=== PATIENT | male | born 1935 | race African-American/Black ===

== ENCOUNTER 2018-11-27 07:08 | Observation (INO) ==
[2018-11-27 08:43] LABS: Basophils % 0.8 % (0.0-0.8); Eosinophils # 0.5 10*3/uL (0.0-0.87); Eosinophils % 10.9 % (0.00-10.9); Hematocrit 36.3 VOL% (42.0-52.0); Immature Granulocytes % 0.4 %; Immature Granulocytes Absolute 0.02 #; Lymphocytes # 1.4 10*3/uL (1.4-4.0); Lymphocytes % 28.9 % (21.2-54.2); Mean Corpuscular HGB Conc 33.1 GM/DL (32-36); Mean Corpuscular Volume 102.5 FL (87-102); Mean Platelet Volume 11.6 FL (9.6-12.0); Monocytes % 10.9 % (1.7-12.7); Neutrophils % 48.1 % (38.7-73.9); Platelet Count 159 T/CUMM (130-400); Red Blood Count 3.54 MC/CUMM (3.8-5.5); Red Cell Distribution Width 12.6 % (9.3-17.3); White Blood Count 4.8 T/CUMM (4-12)
[2018-11-27 09:02] LABS: Albumin 3.4 G/DL (3.4-5.0); Bilirubin,Total 0.8 MG/DL (0.2-1.0); Calcium 9.2 MG/DL (8.5-10.1); Total Protein 7.7 G/DL (6.4-8.3)
[2018-11-27] MEDS ORDERED: FUROSEMIDE 40 MG/4 ML VIAL IV STA (09:38)
[2018-11-27 09:43] LABS: Amorphous Crystals,Urine Occasional /HPF (Few); Apearance,Urine CLEAR (Clear); Bilirubin,Urine Negative (Negative); Blood, Urine Negative (Negative); Glucose,Urine (UA) Negative (Negative); Ketones,Urine 5 mg/dL (Negative); Mucus,Urine Occasional /LPF (Occasional); Nitrite,Urine Negative (Negative); Protein,Urine 100 MG/DL; RBC,Urine 1 /HPF (0-4); Squamous Epithelial Cell,Urine Occasional /HPF (0-10); Urine Color Yellow (Yellow); Urine Specific Gravity 1.015 (1.001-1.035); Urine Urobilinogen < 2.0 EU/DL (0.2-1.0)
[2018-11-27] MEDS ORDERED: ACETAMINOPHEN 325 MG TABLET PO PRN (10:53)
[2018-11-27] MEDS ORDERED: SODIUM CHLORIDE 0.9% 1,000 ML IV SCH (10:53)
[2018-11-27] MEDS ORDERED: ONDANSETRON 4 MG/2 ML VIAL IV PRN (10:53)
[2018-11-27] MEDS: METOPROLOL SUCCINATE XL 25 MG TABLET PO SCH (14:34)
[2018-11-27] MEDS ORDERED: ALBUTEROL 2.5 MG/3 ML NEB RESP TX PRN (15:00)
[2018-11-27] MEDS: FUROSEMIDE 40 MG/4 ML VIAL IV SCH (16:19)
[2018-11-27] MEDS ORDERED: ALBUTEROL/IPRATROPIUM 3 ML NEB RESP TX PRN (19:49)
[2018-11-27] MEDS: SACUBITRIL/VALSARTAN 49-51 MG TABLET PO SCH (21:02)
[2018-11-27] MEDS: DOCUSATE SODIUM 100 MG CAPSULE PO SCH (21:02)
[2018-11-27] MEDS: LATANOPROST 0.005% OPH SOLN 2.5 ML BOTTLE BOTH EYES SCH (21:02)
[2018-11-28 05:38] LABS: Basophils % 0.7 % (0.0-0.8); Eosinophils # 0.5 10*3/uL (0.0-0.87); Hematocrit 38.4 VOL% (42.0-52.0); Hemoglobin 12.3 GM/DL (14.0-18.0); Immature Granulocytes % 0.2 %; Immature Granulocytes Absolute 0.01 #; Lymphocytes # 1.4 10*3/uL (1.4-4.0); Lymphocytes % 32.5 % (21.2-54.2); Mean Corpuscular Volume 103.8 FL (87-102); Mean Platelet Volume 11.9 FL (9.6-12.0); Monocytes % 12.7 % (1.7-12.7); Neutrophils % 41.9 % (38.7-73.9); Platelet Count 164 T/CUMM (130-400); Red Cell Distribution Width 12.4 % (9.3-17.3); White Blood Count 4.2 T/CUMM (4-12)
[2018-11-28 06:08] LABS: Bilirubin,Total 0.7 MG/DL (0.2-1.0); Calcium 8.5 MG/DL (8.5-10.1); Risk Ratio 2.24; Thyroid Stimulating Hormone 3.41 uIU/ml (0.358-3.74); VLDL CHOLESTEROL 15.2 MG/DL
[2018-11-28 06:29] LABS: Band Neutrophils 3 % (0-10); Eosinophils 11 % (0-10); Hypochromasia 2+; Lymphocytes 30 % (20-55); Platelet Estimate Normal; Segmented Neutrophils 42 % (50-85); Total Cells Counted 100
[2018-11-28] MEDS: SODIUM CHLOR 0.9% KCL 20 MEQ 20 MEQ/1,000 ML BAG IV SCH (08:41)
[2018-11-28] MEDS: FUROSEMIDE 40 MG/4 ML VIAL IV SCH ×2 (08:42→15:56)
[2018-11-28] MEDS: ROSUVASTATIN 20 MG TABLET PO SCH (08:43)
[2018-11-28] MEDS: DUTASTERIDE 0.5 MG CAPSULE PO SCH (08:43)
[2018-11-28] MEDS: ASPIRIN EC 81 MG TABLET PO SCH (08:43)
[2018-11-28] MEDS: PANTOPRAZOLE 40 MG TABLET PO SCH (08:43)
[2018-11-28] MEDS: DOCUSATE SODIUM 100 MG CAPSULE PO SCH ×2 (08:43→20:23)
[2018-11-28] MEDS: MULTIVITAMIN (CENTRUM) TABLET PO SCH (08:43)
[2018-11-28] MEDS: SACUBITRIL/VALSARTAN 49-51 MG TABLET PO SCH ×2 (08:44→20:23)
[2018-11-28] MEDS: METOPROLOL SUCCINATE XL 25 MG TABLET PO SCH (08:44)
[2018-11-28] MEDS: TAMSULOSIN 0.4 MG CAPSULE PO SCH (08:45)
[2018-11-28] MEDS: LATANOPROST 0.005% OPH SOLN 2.5 ML BOTTLE BOTH EYES SCH ×2 (08:49→20:23)
[2018-11-28] MEDS: POTASSIUM CHLORIDE RIDER 10 MEQ in PREMIX 1 EACH IV SCH ×3 (09:40→13:31)
[2018-11-29 05:02] LABS: Basophils % 0.9 % (0.0-0.8); Eosinophils # 0.5 10*3/uL (0.0-0.87); Eosinophils % 11.2 % (0.00-10.9); Hematocrit 36.9 VOL% (42.0-52.0); Hemoglobin 11.9 GM/DL (14.0-18.0); Immature Granulocytes % 0.4 %; Immature Granulocytes Absolute 0.02 #; Lymphocytes # 1.3 10*3/uL (1.4-4.0); Lymphocytes % 28.5 % (21.2-54.2); Mean Corpuscular HGB Conc 32.2 GM/DL (32-36); Mean Corpuscular Volume 103.4 FL (87-102); Mean Platelet Volume 11.1 FL (9.6-12.0); Monocytes % 12.1 % (1.7-12.7); Neutrophils % 46.9 % (38.7-73.9); Platelet Count 150 T/CUMM (130-400); Red Blood Count 3.57 MC/CUMM (3.8-5.5); Red Cell Distribution Width 12.3 % (9.3-17.3); White Blood Count 4.6 T/CUMM (4-12)
[2018-11-29 05:29] LABS: Band Neutrophils 18 % (0-10); Eosinophils 11 % (0-10); Lymphocytes 25 % (20-55); Segmented Neutrophils 30 % (50-85); Total Cells Counted 100
[2018-11-29 05:30] LABS: Platelet Estimate Adequate
[2018-11-29 05:34] LABS: Bilirubin,Total 0.9 MG/DL (0.2-1.0); Calcium 8.7 MG/DL (8.5-10.1); Osmolality,Calculated 292.7 MOS/KG (273-304); Total Protein 6.9 G/DL (6.4-8.3)
[2018-11-29] MEDS: DUTASTERIDE 0.5 MG CAPSULE PO SCH (08:04)
[2018-11-29] MEDS: FUROSEMIDE 40 MG/4 ML VIAL IV SCH (08:04)
[2018-11-29] MEDS: METOPROLOL SUCCINATE XL 25 MG TABLET PO SCH (08:04)
[2018-11-29] MEDS: DOCUSATE SODIUM 100 MG CAPSULE PO SCH ×2 (08:04→21:19)
[2018-11-29] MEDS: ASPIRIN EC 81 MG TABLET PO SCH (08:04)
[2018-11-29] MEDS: LATANOPROST 0.005% OPH SOLN 2.5 ML BOTTLE BOTH EYES SCH ×2 (08:04→21:19)
[2018-11-29] MEDS: MULTIVITAMIN (CENTRUM) TABLET PO SCH (08:04)
[2018-11-29] MEDS: TAMSULOSIN 0.4 MG CAPSULE PO SCH (08:04)
[2018-11-29] MEDS: PANTOPRAZOLE 40 MG TABLET PO SCH (08:04)
[2018-11-29] MEDS: ROSUVASTATIN 20 MG TABLET PO SCH (08:04)
[2018-11-29] MEDS: SACUBITRIL/VALSARTAN 49-51 MG TABLET PO SCH ×2 (08:05→21:18)
[2018-11-29] MEDS: FUROSEMIDE 40 MG TABLET PO SCH (15:37)
[2018-11-29] MEDS: SODIUM CHLOR 0.9% KCL 20 MEQ 20 MEQ/1,000 ML BAG IV SCH (23:40)
[2018-11-30 05:11] LABS: Basophils % 0.7 % (0.0-0.8); Eosinophils # 0.6 10*3/uL (0.0-0.87); Hematocrit 35.3 VOL% (42.0-52.0); Hemoglobin 11.4 GM/DL (14.0-18.0); Immature Granulocytes % 0.2 %; Immature Granulocytes Absolute 0.01 #; Lymphocytes # 1.4 10*3/uL (1.4-4.0); Lymphocytes % 29.6 % (21.2-54.2); Mean Corpuscular HGB Conc 32.3 GM/DL (32-36); Mean Corpuscular Volume 103.8 FL (87-102); Mean Platelet Volume 11.8 FL (9.6-12.0); Monocytes % 12.4 % (1.7-12.7); Neutrophils % 44.1 % (38.7-73.9); Platelet Count 151 T/CUMM (130-400); Red Cell Distribution Width 12.6 % (9.3-17.3); White Blood Count 4.6 T/CUMM (4-12)
[2018-11-30 05:32] LABS: Eosinophils 14 % (0-10); Hypochromasia 1+; Lymphocytes 23 % (20-55); Platelet Estimate Adequate; Segmented Neutrophils 51 % (50-85); Total Cells Counted 100
[2018-11-30 05:48] LABS: Calcium 8.6 MG/DL (8.5-10.1); Osmolality,Calculated 294.6 MOS/KG (273-304)
[2018-11-30 07:45] VITALS: BP 141/84
[2018-11-30] MEDS: FUROSEMIDE 40 MG TABLET PO SCH (07:47)
[2018-11-30] MEDS: LATANOPROST 0.005% OPH SOLN 2.5 ML BOTTLE BOTH EYES SCH (09:00)
[2018-11-30] MEDS: DOCUSATE SODIUM 100 MG CAPSULE PO SCH (09:03)
[2018-11-30] MEDS: TAMSULOSIN 0.4 MG CAPSULE PO SCH (09:03)
[2018-11-30] MEDS: MULTIVITAMIN (CENTRUM) TABLET PO SCH (09:05)
[2018-11-30] MEDS: METOPROLOL SUCCINATE XL 25 MG TABLET PO SCH (09:05)
[2018-11-30] MEDS: DUTASTERIDE 0.5 MG CAPSULE PO SCH (09:05)
[2018-11-30] MEDS: ROSUVASTATIN 20 MG TABLET PO SCH (09:05)
[2018-11-30] MEDS: ASPIRIN EC 81 MG TABLET PO SCH (09:05)
[2018-11-30] MEDS: SACUBITRIL/VALSARTAN 49-51 MG TABLET PO SCH (09:05)
[2018-11-30] MEDS: PANTOPRAZOLE 40 MG TABLET PO SCH (09:06)
[2018-11-30] MEDS ORDERED: POTASSIUM CHLORIDE 10 MEQ TABLET PO SCH (10:30)
== END 2018-11-30 11:27 | disposition home or self-care (01) ==
LOC: N.2E 07:08 → N.ED 07:08 → N.2E 10:48
PROVIDERS: ADMIT Family Medicine; ATTEND Family Medicine

== ENCOUNTER 2018-12-07 05:50 | Inpatient (IN) ==
[2018-12-07] MEDS ORDERED: ALBUTEROL/IPRATROPIUM 3 ML NEB RESP TX STA (06:14)
[2018-12-07 06:40] LABS: Basophils % 0.7 % (0.0-0.8); Eosinophils # 0.4 10*3/uL (0.0-0.87); Eosinophils % 7.3 % (0.00-10.9); Hematocrit 39.1 VOL% (42.0-52.0); Hemoglobin 12.7 GM/DL (14.0-18.0); Immature Granulocytes % 0.4 %; Immature Granulocytes Absolute 0.02 #; Lymphocytes # 1.4 10*3/uL (1.4-4.0); Lymphocytes % 25.7 % (21.2-54.2); Mean Corpuscular HGB Conc 32.5 GM/DL (32-36); Mean Corpuscular Volume 102.9 FL (87-102); Mean Platelet Volume 11.2 FL (9.6-12.0); Monocytes % 10.2 % (1.7-12.7); Neutrophils % 55.7 % (38.7-73.9); Platelet Count 164 T/CUMM (130-400); Red Cell Distribution Width 12.4 % (9.3-17.3); White Blood Count 5.5 T/CUMM (4-12)
[2018-12-07 07:01] LABS: Albumin 3.4 G/DL (3.4-5.0); Calcium 9.2 MG/DL (8.5-10.1); Total Protein 7.7 G/DL (6.4-8.3)
[2018-12-07 07:03] LABS: Troponin I 0.038 NG/ML (0.00-0.045)
[2018-12-07] MEDS ORDERED: ENOXAPARIN 100 MG/ML SYRINGE SUBCUT STA (08:52)
[2018-12-07] MEDS ORDERED: ONDANSETRON 4 MG/2 ML VIAL IV PRN (10:23)
[2018-12-07] MEDS ORDERED: ACETAMINOPHEN 325 MG TABLET PO PRN (10:23)
[2018-12-07] MEDS ORDERED: DUTASTERIDE TAMSULOSIN PO SCH (13:00)
[2018-12-07] MEDS ORDERED: ALBUTEROL/IPRATROPIUM 3 ML NEB RESP TX PRN (13:08)
[2018-12-07] MEDS ORDERED: SACUBITRIL/VALSARTAN 49-51 MG TABLET PO SCH (13:30)
[2018-12-07] MEDS ORDERED: hydrALAZINE 20 MG/1 ML VIAL IV PRN (14:32)
[2018-12-07] MEDS: TIMOLOL 0.5% OPH SOLN 5 ML BOTTLE BOTH EYES SCH (14:41)
[2018-12-07] MEDS: POTASSIUM CHLORIDE RIDER 10 MEQ in PREMIX 1 EACH IV SCH ×2 (14:41→16:16)
[2018-12-07] MEDS: ASPIRIN EC 81 MG TABLET PO SCH (14:44)
[2018-12-07] MEDS: ISOSORBIDE MONONITRATE 30 MG TABLET PO SCH (16:15)
[2018-12-07] MEDS: FUROSEMIDE 40 MG TABLET PO SCH (16:15)
[2018-12-07 17:10] LABS: Apearance,Urine Slightly Hazy (Clear); Bacteria,Urine Occasional /HPF (Few); Bilirubin,Urine Negative (Negative); Blood, Urine Negative (Negative); Glucose,Urine (UA) Negative (Negative); Ketones,Urine 5 mg/dL (Negative); Mucus,Urine Occasional /LPF (Occasional); Nitrite,Urine Negative (Negative); Protein,Urine 30 MG/DL; Squamous Epithelial Cell,Urine Occasional /HPF (0-10); Urine Color Yellow (Yellow); Urine Specific Gravity 1.015 (1.001-1.035); Urine Urobilinogen < 2.0 EU/DL (0.2-1.0)
[2018-12-07] MEDS: DOCUSATE SODIUM 100 MG CAPSULE PO SCH (20:43)
[2018-12-07] MEDS: ENOXAPARIN 80 MG/0.8 ML SYRINGE SUBCUT SCH (20:44)
[2018-12-07] MEDS: LATANOPROST 0.005% OPH SOLN 2.5 ML BOTTLE BOTH EYES SCH (20:46)
[2018-12-08 03:46] LABS: Basophils # 0.1 10*3/uL (0.0-0.2); Basophils % 0.9 % (0.0-0.8); Eosinophils # 0.6 10*3/uL (0.0-0.87); Eosinophils % 10.3 % (0.00-10.9); Hematocrit 34.6 VOL% (42.0-52.0); Hemoglobin 11.4 GM/DL (14.0-18.0); Immature Granulocytes % 0.2 %; Immature Granulocytes Absolute 0.01 #; Lymphocytes # 1.9 10*3/uL (1.4-4.0); Lymphocytes % 33.4 % (21.2-54.2); Mean Corpuscular HGB Conc 32.9 GM/DL (32-36); Mean Corpuscular Volume 102.1 FL (87-102); Mean Platelet Volume 11.6 FL (9.6-12.0); Monocytes % 14.6 % (1.7-12.7); Neutrophils % 40.6 % (38.7-73.9); Platelet Count 166 T/CUMM (130-400); Red Blood Count 3.39 MC/CUMM (3.8-5.5); Red Cell Distribution Width 12.3 % (9.3-17.3); White Blood Count 5.5 T/CUMM (4-12)
[2018-12-08 04:18] LABS: Risk Ratio 2.45; VLDL CHOLESTEROL 14.6 MG/DL
[2018-12-08] MEDS ORDERED: NON-FORMULARY MEDICATION (Esomeprazole Magnesium 40 MG) PO SCH (09:00)
[2018-12-08] MEDS ORDERED: ENOXAPARIN 80 MG/0.8 ML SYRINGE SUBCUT SCH (09:00)
[2018-12-08 10:37] LABS: Calcium 8.8 MG/DL (8.5-10.1)
[2018-12-08] MEDS: ENOXAPARIN 80 MG/0.8 ML SYRINGE SUBCUT SCH ×2 (10:56→20:47)
[2018-12-08] MEDS: TIMOLOL 0.5% OPH SOLN 5 ML BOTTLE BOTH EYES SCH (10:57)
[2018-12-08] MEDS: LATANOPROST 0.005% OPH SOLN 2.5 ML BOTTLE BOTH EYES SCH ×2 (10:57→20:47)
[2018-12-08] MEDS: ROSUVASTATIN 20 MG TABLET PO SCH (11:00)
[2018-12-08] MEDS: DUTASTERIDE TAMSULOSIN PO SCH (11:00)
[2018-12-08] MEDS: FUROSEMIDE 40 MG TABLET PO SCH ×2 (11:00→16:18)
[2018-12-08] MEDS: DOCUSATE SODIUM 100 MG CAPSULE PO SCH ×2 (11:01→20:46)
[2018-12-08] MEDS: ASPIRIN EC 81 MG TABLET PO SCH (11:01)
[2018-12-08] MEDS: MULTIVITAMIN (CENTRUM) TABLET PO SCH (11:01)
[2018-12-08] MEDS: PANTOPRAZOLE 40 MG TABLET PO SCH (11:01)
[2018-12-08] MEDS: ISOSORBIDE MONONITRATE 30 MG TABLET PO SCH (11:01)
[2018-12-08] MEDS: METOPROLOL SUCCINATE XL 25 MG TABLET PO SCH (11:02)
[2018-12-08] MEDS ORDERED: ALBUTEROL 2.5 MG/3 ML NEB RESP TX PRN (12:30)
[2018-12-09 05:21] LABS: Basophils % 0.8 % (0.0-0.8); Eosinophils # 0.4 10*3/uL (0.0-0.87); Eosinophils % 7.9 % (0.00-10.9); Hematocrit 35.2 VOL% (42.0-52.0); Hemoglobin 11.4 GM/DL (14.0-18.0); Immature Granulocytes % 0.4 %; Immature Granulocytes Absolute 0.02 #; Lymphocytes # 1.3 10*3/uL (1.4-4.0); Lymphocytes % 25.3 % (21.2-54.2); Mean Corpuscular HGB Conc 32.4 GM/DL (32-36); Mean Corpuscular Volume 102.6 FL (87-102); Mean Platelet Volume 11.6 FL (9.6-12.0); Monocytes % 14.4 % (1.7-12.7); Neutrophils % 51.2 % (38.7-73.9); Platelet Count 157 T/CUMM (130-400); Red Blood Count 3.43 MC/CUMM (3.8-5.5); Red Cell Distribution Width 12.3 % (9.3-17.3); White Blood Count 5.3 T/CUMM (4-12)
[2018-12-09 05:35] LABS: Calcium 8.9 MG/DL (8.5-10.1); Osmolality,Calculated 290.8 MOS/KG (273-304)
[2018-12-09] MEDS: METOPROLOL SUCCINATE XL 25 MG TABLET PO SCH (09:24)
[2018-12-09] MEDS: ISOSORBIDE MONONITRATE 30 MG TABLET PO SCH (09:24)
[2018-12-09] MEDS: MULTIVITAMIN (CENTRUM) TABLET PO SCH (09:24)
[2018-12-09] MEDS: ASPIRIN EC 81 MG TABLET PO SCH (09:24)
[2018-12-09] MEDS: FUROSEMIDE 40 MG TABLET PO SCH ×2 (09:24→15:31)
[2018-12-09] MEDS: ROSUVASTATIN 20 MG TABLET PO SCH (09:24)
[2018-12-09] MEDS: PANTOPRAZOLE 40 MG TABLET PO SCH (09:25)
[2018-12-09] MEDS: ENOXAPARIN 80 MG/0.8 ML SYRINGE SUBCUT SCH ×2 (09:25→20:50)
[2018-12-09] MEDS: DOCUSATE SODIUM 100 MG CAPSULE PO SCH ×2 (09:25→20:51)
[2018-12-09] MEDS: DUTASTERIDE TAMSULOSIN PO SCH (09:26)
[2018-12-09] MEDS: TIMOLOL 0.5% OPH SOLN 5 ML BOTTLE BOTH EYES SCH (09:26)
[2018-12-09] MEDS: LATANOPROST 0.005% OPH SOLN 2.5 ML BOTTLE BOTH EYES SCH ×2 (09:31→20:50)
[2018-12-09] MEDS: POTASSIUM CHLORIDE 20 MEQ TABLET PO PRN ×4 (13:09→20:50)
[2018-12-09] MEDS: BUDESONIDE/FORMOTEROL 160-4.5 INHALER 6 GM INH SCH (20:50)
[2018-12-10] MEDS ORDERED: APIXABAN 5 MG TABLET PO SCH (09:00)
[2018-12-10] MEDS: METOPROLOL SUCCINATE XL 25 MG TABLET PO SCH (09:13)
[2018-12-10] MEDS: ASPIRIN EC 81 MG TABLET PO SCH (09:13)
[2018-12-10] MEDS: DOCUSATE SODIUM 100 MG CAPSULE PO SCH ×2 (09:13→21:41)
[2018-12-10] MEDS: APIXABAN 5 MG TABLET PO SCH ×2 (09:13→21:42)
[2018-12-10] MEDS: MULTIVITAMIN (CENTRUM) TABLET PO SCH (09:13)
[2018-12-10] MEDS: ROSUVASTATIN 20 MG TABLET PO SCH (09:13)
[2018-12-10] MEDS: FUROSEMIDE 40 MG TABLET PO SCH ×2 (09:13→16:29)
[2018-12-10] MEDS: ISOSORBIDE MONONITRATE 30 MG TABLET PO SCH (09:13)
[2018-12-10] MEDS: DUTASTERIDE TAMSULOSIN PO SCH (09:14)
[2018-12-10] MEDS: PANTOPRAZOLE 40 MG TABLET PO SCH (09:16)
[2018-12-10] MEDS: BUDESONIDE/FORMOTEROL 160-4.5 INHALER 6 GM INH SCH ×2 (09:18→21:42)
[2018-12-10] MEDS: LATANOPROST 0.005% OPH SOLN 2.5 ML BOTTLE BOTH EYES SCH (09:19)
[2018-12-10] MEDS: TIMOLOL 0.5% OPH SOLN 5 ML BOTTLE BOTH EYES SCH (09:20)
[2018-12-10 11:31] LABS: Calcium 9.6 MG/DL (8.5-10.1); Osmolality,Calculated 291.8 MOS/KG (273-304)
[2018-12-10] MEDS ORDERED: LATANOPROST 0.005% OPH SOLN 2.5 ML BOTTLE BOTH EYES SCH ×2 (21:00)
[2018-12-11 06:00] LABS: Basophils % 0.7 % (0.0-0.8); Eosinophils # 0.5 10*3/uL (0.0-0.87); Eosinophils % 10.1 % (0.00-10.9); Hematocrit 35.7 VOL% (42.0-52.0); Hemoglobin 11.8 GM/DL (14.0-18.0); Immature Granulocytes % 0.4 %; Immature Granulocytes Absolute 0.02 #; Lymphocytes # 1.3 10*3/uL (1.4-4.0); Lymphocytes % 24.5 % (21.2-54.2); Mean Corpuscular HGB Conc 33.1 GM/DL (32-36); Mean Corpuscular Volume 102.9 FL (87-102); Mean Platelet Volume 11.8 FL (9.6-12.0); Monocytes % 13.5 % (1.7-12.7); Neutrophils % 50.8 % (38.7-73.9); Platelet Count 169 T/CUMM (130-400); Red Blood Count 3.47 MC/CUMM (3.8-5.5); Red Cell Distribution Width 12.3 % (9.3-17.3); White Blood Count 5.4 T/CUMM (4-12)
[2018-12-11 06:32] LABS: Bilirubin,Total 1.3 MG/DL (0.2-1.0); Calcium 8.9 MG/DL (8.5-10.1); Osmolality,Calculated 292.8 MOS/KG (273-304); Total Protein 7.3 G/DL (6.4-8.3)
[2018-12-11] MEDS: ASPIRIN EC 81 MG TABLET PO SCH (08:07)
[2018-12-11] MEDS: APIXABAN 5 MG TABLET PO SCH (08:07)
[2018-12-11] MEDS: ROSUVASTATIN 20 MG TABLET PO SCH (08:07)
[2018-12-11] MEDS: MULTIVITAMIN (CENTRUM) TABLET PO SCH (08:07)
[2018-12-11] MEDS: METOPROLOL SUCCINATE XL 25 MG TABLET PO SCH (08:08)
[2018-12-11] MEDS: PANTOPRAZOLE 40 MG TABLET PO SCH (08:08)
[2018-12-11] MEDS: FUROSEMIDE 40 MG TABLET PO SCH (08:08)
[2018-12-11 08:09] VITALS: BP 132/88
[2018-12-11] MEDS: POTASSIUM CHLORIDE 20 MEQ TABLET PO PRN (08:09)
[2018-12-11] MEDS: ISOSORBIDE MONONITRATE 30 MG TABLET PO SCH (08:09)
[2018-12-11] MEDS: DUTASTERIDE TAMSULOSIN PO SCH (08:11)
[2018-12-11] MEDS: TIMOLOL 0.5% OPH SOLN 5 ML BOTTLE BOTH EYES SCH (08:11)
[2018-12-11] MEDS: BUDESONIDE/FORMOTEROL 160-4.5 INHALER 6 GM INH SCH (08:11)
[2018-12-11] MEDS ORDERED: POTASSIUM CHLORIDE 10 MEQ TABLET PO SCH (09:00)
[2018-12-11] MEDS: DOCUSATE SODIUM 100 MG CAPSULE PO SCH (11:13)
[2018-12-17] MEDS ORDERED: APIXABAN 5 MG TABLET PO SCH (09:00)
== END 2018-12-11 10:44 | disposition home health service (06) | DRG 176 ==
LOC: N.ED 05:50 → N.EDINP 09:16 → N.CC 10:17 → N.TELEN 12-08 12:45
PROVIDERS: ADMIT Family Medicine; ATTEND Family Medicine

== ENCOUNTER 2019-02-09 03:04 | Observation (INO) ==
[2019-02-09 03:32] LABS: Basophils # 0.1 10*3/uL (0.0-0.2); Eosinophils # 0.2 10*3/uL (0.0-0.87); Eosinophils % 3.3 % (0.00-10.9); Hematocrit 40.5 VOL% (42.0-52.0); Immature Granulocytes % 0.3 %; Immature Granulocytes Absolute 0.02 #; Lymphocytes # 1.4 10*3/uL (1.4-4.0); Lymphocytes % 23.3 % (21.2-54.2); Mean Corpuscular HGB Conc 32.1 GM/DL (32-36); Mean Corpuscular Volume 106.9 FL (87-102); Monocytes % 7.9 % (1.7-12.7); Neutrophils % 64.2 % (38.7-73.9); Platelet Count 157 T/CUMM (130-400); Red Blood Count 3.79 MC/CUMM (3.8-5.5); Red Cell Distribution Width 12.2 % (9.3-17.3); White Blood Count 6.1 T/CUMM (4-12)
[2019-02-09 04:09] LABS: Albumin 3.9 G/DL (3.4-5.0); Bilirubin,Total 0.5 MG/DL (0.2-1.0); Calcium 9.2 MG/DL (8.5-10.1); Osmolality,Calculated 288.3 MOS/KG (273-304)
[2019-02-09] MEDS ORDERED: FUROSEMIDE 40 MG/4 ML VIAL IV STA (04:25)
[2019-02-09] MEDS ORDERED: INFLUENZA VIRUS VACCINE 0.5 ML SYRINGE IM ONE (06:13)
[2019-02-09 06:24] LABS: Apearance,Urine CLEAR (Clear); Bacteria,Urine Occasional /HPF (Few); Bilirubin,Urine Negative (Negative); Blood, Urine Negative (Negative); Glucose,Urine (UA) Negative (Negative); Ketones,Urine Negative (Negative); Mucus,Urine Occasional /LPF (Occasional); Nitrite,Urine Negative (Negative); Protein,Urine Negative; RBC,Urine 1 /HPF (0-4); Squamous Epithelial Cell,Urine Occasional /HPF (0-10); Urine Color Straw (Yellow); Urine Specific Gravity 1.006 (1.001-1.035); Urine Urobilinogen < 2.0 EU/DL (0.2-1.0)
[2019-02-09] MEDS ORDERED: BUDESONIDE/FORMOTEROL 160-4.5 INHALER 6 GM INH PRN (14:19)
[2019-02-09] MEDS ORDERED: ALBUTEROL/IPRATROPIUM 3 ML NEB RESP TX PRN (14:21)
[2019-02-09] MEDS ORDERED: MAGNESIUM SULF RIDER 2 GM in PREMIX 1 EACH IV PRN (14:22)
[2019-02-09] MEDS ORDERED: MAGNESIUM SULF RIDER 4 GM in PREMIX 1 EACH IV PRN (14:22)
[2019-02-09] MEDS ORDERED: POTASSIUM CHLORIDE 20 MEQ TABLET PO PRN (14:22)
[2019-02-09] MEDS: FUROSEMIDE 40 MG/4 ML VIAL IV SCH (15:50)
[2019-02-09] MEDS: APIXABAN 5 MG TABLET PO SCH (20:50)
[2019-02-09] MEDS: POTASSIUM CHLORIDE 10 MEQ TABLET PO SCH (20:50)
[2019-02-09] MEDS: LATANOPROST 0.005% OPH SOLN 2.5 ML BOTTLE BOTH EYES SCH (20:50)
[2019-02-09] MEDS: SACUBITRIL/VALSARTAN 49-51 MG TABLET PO SCH (20:50)
[2019-02-10 06:00] LABS: Basophils % 0.6 % (0.0-0.8); Eosinophils # 0.3 10*3/uL (0.0-0.87); Eosinophils % 5.7 % (0.00-10.9); Hematocrit 37.8 VOL% (42.0-52.0); Hemoglobin 12.6 GM/DL (14.0-18.0); Immature Granulocytes % 0.2 %; Immature Granulocytes Absolute 0.01 #; Lymphocytes # 1.5 10*3/uL (1.4-4.0); Lymphocytes % 28.4 % (21.2-54.2); Mean Corpuscular HGB Conc 33.3 GM/DL (32-36); Mean Corpuscular Volume 104.7 FL (87-102); Mean Platelet Volume 12.3 FL (9.6-12.0); Monocytes % 11.4 % (1.7-12.7); Neutrophils % 53.7 % (38.7-73.9); Platelet Count 146 T/CUMM (130-400); Red Blood Count 3.61 MC/CUMM (3.8-5.5); Red Cell Distribution Width 11.9 % (9.3-17.3); White Blood Count 5.1 T/CUMM (4-12)
[2019-02-10 06:35] LABS: Albumin 3.2 G/DL (3.4-5.0); Bilirubin,Total 0.7 MG/DL (0.2-1.0); Osmolality,Calculated 288.1 MOS/KG (273-304); Total Protein 7.3 G/DL (6.4-8.3)
[2019-02-10] MEDS: FUROSEMIDE 40 MG/4 ML VIAL IV SCH ×2 (08:59→16:19)
[2019-02-10] MEDS: POTASSIUM CHLORIDE 10 MEQ TABLET PO SCH ×2 (08:59→21:31)
[2019-02-10] MEDS: PANTOPRAZOLE 40 MG TABLET PO SCH (08:59)
[2019-02-10] MEDS: DUTASTERIDE 0.5 MG CAPSULE PO SCH (08:59)
[2019-02-10] MEDS: MULTIVITAMIN (CENTRUM) TABLET PO SCH (08:59)
[2019-02-10] MEDS: APIXABAN 5 MG TABLET PO SCH ×2 (08:59→21:31)
[2019-02-10] MEDS: ROSUVASTATIN 20 MG TABLET PO SCH (08:59)
[2019-02-10] MEDS: TAMSULOSIN 0.4 MG CAPSULE PO SCH (08:59)
[2019-02-10] MEDS: SACUBITRIL/VALSARTAN 49-51 MG TABLET PO SCH ×2 (08:59→21:31)
[2019-02-10] MEDS ORDERED: ASPIRIN EC 81 MG TABLET PO SCH (09:00)
[2019-02-10] MEDS ORDERED: METOPROLOL SUCCINATE XL 25 MG TABLET PO SCH (09:00)
[2019-02-10] MEDS: TIMOLOL 0.5% OPH SOLN 5 ML BOTTLE BOTH EYES SCH (09:04)
[2019-02-10] MEDS ORDERED: SIMETHICONE CHEW 125 MG TABLET PO PRN (12:31)
[2019-02-10] MEDS: METOPROLOL SUCCINATE XL 25 MG TABLET PO SCH (21:31)
[2019-02-10] MEDS: LATANOPROST 0.005% OPH SOLN 2.5 ML BOTTLE BOTH EYES SCH (21:32)
[2019-02-11] MEDS: SACUBITRIL/VALSARTAN 49-51 MG TABLET PO SCH (08:38)
[2019-02-11] MEDS: PANTOPRAZOLE 40 MG TABLET PO SCH (08:38)
[2019-02-11] MEDS: MULTIVITAMIN (CENTRUM) TABLET PO SCH (08:38)
[2019-02-11] MEDS: DUTASTERIDE 0.5 MG CAPSULE PO SCH (08:38)
[2019-02-11] MEDS: ROSUVASTATIN 20 MG TABLET PO SCH (08:38)
[2019-02-11] MEDS: TAMSULOSIN 0.4 MG CAPSULE PO SCH (08:38)
[2019-02-11] MEDS: POTASSIUM CHLORIDE 10 MEQ TABLET PO SCH (08:38)
[2019-02-11] MEDS: APIXABAN 5 MG TABLET PO SCH (08:39)
[2019-02-11] MEDS: FUROSEMIDE 40 MG/4 ML VIAL IV SCH (08:39)
[2019-02-11] MEDS: TIMOLOL 0.5% OPH SOLN 5 ML BOTTLE BOTH EYES SCH (08:40)
[2019-02-11] MEDS: METOPROLOL SUCCINATE XL 25 MG TABLET PO SCH (08:41)
[2019-02-11 09:35] LABS: Basophils % 0.6 % (0.0-0.8); Eosinophils # 0.3 10*3/uL (0.0-0.87); Eosinophils % 5.1 % (0.00-10.9); Hematocrit 40.2 VOL% (42.0-52.0); Hemoglobin 13.3 GM/DL (14.0-18.0); Immature Granulocytes % 0.2 %; Immature Granulocytes Absolute 0.01 #; Lymphocytes # 1.4 10*3/uL (1.4-4.0); Lymphocytes % 27.6 % (21.2-54.2); Mean Corpuscular HGB Conc 33.1 GM/DL (32-36); Mean Corpuscular Volume 104.4 FL (87-102); Mean Platelet Volume 12.6 FL (9.6-12.0); Monocytes % 10.6 % (1.7-12.7); Neutrophils % 55.9 % (38.7-73.9); Platelet Count 166 T/CUMM (130-400); Red Blood Count 3.85 MC/CUMM (3.8-5.5); Red Cell Distribution Width 12.2 % (9.3-17.3); White Blood Count 4.9 T/CUMM (4-12)
[2019-02-11 10:00] LABS: Albumin 3.8 G/DL (3.4-5.0); Bilirubin,Total 0.8 MG/DL (0.2-1.0); Calcium 9.5 MG/DL (8.5-10.1); Osmolality,Calculated 290.8 MOS/KG (273-304); Total Protein 7.8 G/DL (6.4-8.3)
[2019-02-11 12:28] VITALS: BP 109/59
[2019-02-11] MEDS ORDERED: FUROSEMIDE 20 MG TABLET PO SCH (16:00)
[2019-02-11] MEDS ORDERED: FUROSEMIDE 40 MG TABLET PO SCH (16:00)
== END 2019-02-11 15:15 | disposition home or self-care (01) ==
LOC: N.ED 03:04 → N.EDINP 03:04 → N.TELEN 05:15
PROVIDERS: ADMIT Family Medicine; ATTEND Family Medicine

== ENCOUNTER 2022-01-13 21:11 | Observation (INO) ==
[2022-01-13] MEDS ORDERED: ONDANSETRON 4 MG/2 ML VIAL IV STA (21:29)
[2022-01-13] MEDS ORDERED: ASPIRIN 325 MG TABLET PO STA (21:29)
[2022-01-13 21:37] LABS: Basophils % 0.7 % (0.0-0.8); Eosinophils # 0.2 10*3/uL (0.0-0.87); Eosinophils % 4.4 % (0.00-10.9); Hematocrit 36.2 VOL% (42.0-52.0); Hemoglobin 12.3 GM/DL (14.0-18.0); Immature Granulocytes % 0.2 %; Immature Granulocytes Absolute 0.01 #; Lymphocytes # 1.6 10*3/uL (1.4-4.0); Lymphocytes % 34.4 % (21.2-54.2); Mean Corpuscular Volume 106.5 FL (87-102); Mean Platelet Volume 11.8 FL (9.6-12.0); Monocytes # 0.5 10*3/uL (0.11-0.8); Monocytes % 11.7 % (1.7-12.7); Neutrophils % 48.6 % (38.7-73.9); Platelet Count 200 T/CUMM (130-400); Red Cell Distribution Width 12.4 % (9.3-17.3); White Blood Count 4.5 T/CUMM (4-12)
[2022-01-13 21:51] LABS: PT Patient Result 11.3 SECS (10.1-12.1); Partial Thromboplastin Time 34.6 SECS (23.7-32.9)
[2022-01-13 22:42] LABS: Alanine Aminotransferase 24 U/L (16-61); Albumin 3.4 G/DL (3.4-5.0); Alkaline Phosphatase 69 U/L (45-117); Aspartate Amino Transferase 22 U/L (0-37); Blood Urea Nitrogen 22 MG/DL (7-18); Calcium 8.3 MG/DL (8.5-10.1); Carbon Dioxide 27 MMOL/L (21-32); Chloride 111 MMOL/L (98-107); Glucose 103 MG/DL (74-106); Osmolality,Calculated 288.8 MOS/KG (273-304); Potassium 3.7 MMOL/L (3.5-5.1); Sodium 144 MMOL/L (136-145)
[2022-01-13 23:14] LABS: Bilirubin,Urine Negative (Negative); Blood, Urine Negative (Negative); Glucose,Urine (UA) Negative (Negative); Ketones,Urine Negative (Negative); Nitrite,Urine Negative (Negative); Protein,Urine 30 mg/dL (Negative); Urine Appearance Clear (Clear); Urine Color Yellow (Yellow); Urine Specific Gravity 1.015 (1.001-1.035); Urine Urobilinogen 0.2 eU/dL (<2.0)
[2022-01-13 23:25] LABS: Mucus,Urine Occasional /LPF (Occasional); RBC,Urine 2 /HPF (0-4)
[2022-01-14 00:01] LABS: Barbiturates Screen,Urine Negative (Negative); Benzodiazepines Screen,Urine Negative (Negative); Cannabinoid Screen,Urine Negative (Negative); Opiate Screen,Urine Negative (Negative); Phencyclidine Screen,Urine Negative (Negative)
[2022-01-14] MEDS ORDERED: DEXTROSE 10% 250 ML BAG IV PRN (00:14)
[2022-01-14] MEDS ORDERED: ACETAMINOPHEN 325 MG TABLET PO PRN (00:14)
[2022-01-14] MEDS ORDERED: diphenhydrAMINE CAP 25 MG CAPSULE PO PRN (00:14)
[2022-01-14] MEDS ORDERED: hydrALAZINE 20 MG/1 ML VIAL IV PRN (00:14)
[2022-01-14] MEDS ORDERED: guaiFENesin/DM ER 600-30 MG TABLET PO PRN (00:14)
[2022-01-14] MEDS ORDERED: NICOTINE 21 MG/24 HR PATCH TRANSDERM PRN (00:14)
[2022-01-14] MEDS ORDERED: GLUCAGON 1 MG VIAL IM PRN ×2 (00:14)
[2022-01-14] MEDS ORDERED: ONDANSETRON 4 MG/2 ML VIAL IV PRN (00:14)
[2022-01-14] MEDS ORDERED: ZALEPLON 5 MG CAPSULE PO PRN (00:14)
[2022-01-14] MEDS ORDERED: DEXTROSE 50% 25 GM/50 ML VIAL IV PRN (00:14)
[2022-01-14 05:35] LABS: Basophils % 0.8 % (0.0-0.8); Eosinophils # 0.2 10*3/uL (0.0-0.87); Eosinophils % 4.6 % (0.00-10.9); Hematocrit 37.8 VOL% (42.0-52.0); Hemoglobin 12.7 GM/DL (14.0-18.0); Immature Granulocytes % 0.5 %; Immature Granulocytes Absolute 0.02 #; Lymphocytes # 1.1 10*3/uL (1.4-4.0); Mean Corpuscular HGB Conc 33.6 GM/DL (32-36); Mean Corpuscular Volume 105.6 FL (87-102); Mean Platelet Volume 11.3 FL (9.6-12.0); Monocytes # 0.4 10*3/uL (0.11-0.8); Neutrophils % 57.1 % (38.7-73.9); Platelet Count 146 T/CUMM (130-400); Red Blood Count 3.58 MC/CUMM (3.8-5.5); White Blood Count 3.9 T/CUMM (4-12)
[2022-01-14 05:51] LABS: Calcium 9.1 MG/DL (8.5-10.1); Potassium 3.3 MMOL/L (3.5-5.1)
[2022-01-14] MEDS ORDERED: FUROSEMIDE 40 MG TABLET PO SCH (08:00)
[2022-01-14] MEDS ORDERED: ATORVASTATIN 40 MG TABLET PO SCH (09:00)
[2022-01-14] MEDS ORDERED: carvediloL 12.5 MG TABLET PO SCH (09:00)
[2022-01-14] MEDS ORDERED: ISOSORBIDE DINITRATE 20 MG TABLET PO SCH (09:00)
[2022-01-14] MEDS ORDERED: SACUBITRIL/VALSARTAN 49-51 MG TABLET PO SCH (09:00)
[2022-01-14] MEDS ORDERED: hydrALAZINE 25 MG TABLET PO SCH (09:00)
[2022-01-14] MEDS ORDERED: POTASSIUM CHLORIDE 10 MEQ TABLET PO SCH (09:00)
[2022-01-14] MEDS ORDERED: ASPIRIN EC 81 MG TABLET PO SCH (09:00)
[2022-01-14] MEDS ORDERED: APIXABAN 2.5 MG TABLET PO SCH (09:00)
[2022-01-14] MEDS ORDERED: POTASSIUM CHLORIDE 20 MEQ TABLET PO ONE (10:32)
[2022-01-14 10:57] LABS: Folate 17.73 NG/ML (5.38-24.0)
[2022-01-14 12:16] VITALS: BP 137/82
[2022-01-14] MEDS ORDERED: LATANOPROST 0.005% OPH SOLN 2.5 ML BOTTLE BOTH EYES SCH (21:00)
== END 2022-01-14 15:45 | disposition home or self-care (01) ==
LOC: N.ED 21:11 → N.2W 21:11
PROVIDERS: ADMIT Internal Medicine; ATTEND Internal Medicine

== ENCOUNTER 2022-01-28 04:16 | Observation (INO) ==
[2022-01-28] MEDS ORDERED: ASPIRIN 325 MG TABLET PO STA (04:42)
[2022-01-28] MEDS ORDERED: ONDANSETRON 4 MG/2 ML VIAL IV STA (04:42)
[2022-01-28 04:45] LABS: Basophils % 0.4 % (0.0-0.8); Eosinophils # 0.2 10*3/uL (0.0-0.87); Eosinophils % 3.6 % (0.00-10.9); Hematocrit 35.6 VOL% (42.0-52.0); Hemoglobin 11.9 GM/DL (14.0-18.0); Immature Granulocytes % 0.2 %; Immature Granulocytes Absolute 0.01 #; Lymphocytes # 1.2 10*3/uL (1.4-4.0); Lymphocytes % 27.9 % (21.2-54.2); Mean Corpuscular HGB Conc 33.4 GM/DL (32-36); Mean Corpuscular Volume 107.6 FL (87-102); Mean Platelet Volume 11.2 FL (9.6-12.0); Monocytes # 0.5 10*3/uL (0.11-0.8); Monocytes % 10.6 % (1.7-12.7); Neutrophils % 57.3 % (38.7-73.9); Platelet Count 167 T/CUMM (130-400); Red Blood Count 3.31 MC/CUMM (3.8-5.5); White Blood Count 4.5 T/CUMM (4-12)
[2022-01-28 05:04] LABS: Albumin 3.7 G/DL (3.4-5.0); Bilirubin,Total 0.7 MG/DL (0.20-1.00); Calcium 8.7 MG/DL (8.5-10.1); Potassium 4.3 MMOL/L (3.5-5.1); Total Protein 7.8 G/DL (6.4-8.2)
[2022-01-28] MEDS ORDERED: ACETAMINOPHEN 325 MG TABLET PO PRN (05:39)
[2022-01-28] MEDS ORDERED: hydrALAZINE 20 MG/1 ML VIAL IV PRN (05:39)
[2022-01-28] MEDS ORDERED: ONDANSETRON 4 MG/2 ML VIAL IV PRN (05:39)
[2022-01-28] MEDS ORDERED: MORPHINE 2 MG/1 ML SYRINGE IV PRN (05:39)
[2022-01-28] MEDS ORDERED: APIXABAN 2.5 MG TABLET PO SCH (09:00)
[2022-01-28] MEDS ORDERED: POTASSIUM CHLORIDE 10 MEQ TABLET PO SCH (09:00)
[2022-01-28] MEDS ORDERED: ATORVASTATIN 40 MG TABLET PO SCH (09:00)
[2022-01-28] MEDS ORDERED: hydrALAZINE 25 MG TABLET PO SCH (09:00)
[2022-01-28] MEDS ORDERED: carvediloL 12.5 MG TABLET PO SCH (09:00)
[2022-01-28] MEDS ORDERED: SACUBITRIL/VALSARTAN 49-51 MG TABLET PO SCH (09:00)
[2022-01-28] MEDS ORDERED: PANTOPRAZOLE 40 MG TABLET PO SCH (09:00)
[2022-01-28] MEDS: ISOSORBIDE DINITRATE 20 MG TABLET PO SCH ×2 (09:18→15:56)
[2022-01-28] MEDS: FUROSEMIDE 40 MG TABLET PO SCH ×2 (09:19→15:56)
[2022-01-28] MEDS ORDERED: carvediloL 12.5 MG TABLET PO STA (12:04)
[2022-01-28 17:36] VITALS: BP 147/75
[2022-01-28] MEDS ORDERED: LATANOPROST 0.005% OPH SOLN 2.5 ML BOTTLE BOTH EYES SCH (21:00)
[2022-01-28] MEDS ORDERED: carvediloL 25 MG TABLET PO SCH (21:00)
[2022-01-29] MEDS ORDERED: ASPIRIN EC 81 MG TABLET PO SCH (09:00)
[2022-01-29] MEDS ORDERED: TAMSULOSIN 0.4 MG CAPSULE PO SCH (09:00)
[2022-01-29] MEDS ORDERED: TIMOLOL 0.5% OPH SOLN 5 ML BOTTLE BOTH EYES SCH (09:00)
[2022-01-29] MEDS ORDERED: DUTASTERIDE 0.5 MG CAPSULE PO SCH (09:00)
== END 2022-01-28 17:52 | disposition home or self-care (01) ==
LOC: N.ED 04:16 → N.EDINP 04:16 → N.TELES 13:45
PROVIDERS: ADMIT Hospitalist; ATTEND Hospitalist